=== PATIENT | male | born 1995 | race African-American/Black ===

== ENCOUNTER 2022-08-15 13:25 | Emergency (ER) | payer SELFPAY ==
[~2022-08-15] VITALS: Ht 195.6 cm; Wt 90.0 kg
[2022-08-15 14:03] VITALS: BP 95/62
[2022-08-15] MEDS ORDERED: ACETAMINOPHEN 500 MG TAB PO ONE (14:45)
[2022-08-15] MEDS ORDERED: cefTRIAXone SOD 1,000 MG VL IM ONE (14:45)
[2022-08-15] MEDS ORDERED: AZIT500T66 PO (15:05)
[2022-08-15] MEDS ORDERED: IBUP800T27 PO (15:05)
[2022-08-15] MEDS ORDERED: PROM1SOL4 PO (15:05)
== END 2022-08-15 15:11 | disposition home or self-care (01) ==
LOC: ER 13:25
DX: J20.9 Acute bronchitis, unspecified (principal); J03.90 Acute tonsillitis, unspecified; F17.210 Nicotine dependence, cigarettes, uncomplicated
CPT/HCPCS: 71046; 96372; 99283; J0696